=== PATIENT | female | born 1980 | race African-American/Black ===

== ENCOUNTER 2019-05-08 16:49 | Inpatient (IN) | payer OTHER ==
[~2019-05-08] VITALS: Ht 167.6 cm; Wt 81.0 kg
[2019-05-08 17:14] LABS: BASOPHILS % (AUTO) 0.6 % (0.0-2.0); EOSINOPHILS % (AUTO) 0.7 % (1.0-6.0); HEMATOCRIT 42.5 % (36-46); HEMOGLOBIN 14.5 g/dL (12.0-16.0); LYMPHOCYTES # (AUTO) 1.4 K/uL (1.0-4.8); LYMPHOCYTES % (AUTO) 13.6 % (22.0-44.0); MEAN CORPUSCULAR HEMOGLOBIN 31.6 pg (26.0-34.0); MEAN CORPUSCULAR VOLUME 93 fL (80-100); MONOCYTES # (AUTO) 0.6 K/uL (0.1-1.0); NEUTROPHILS # (AUTO) 8.2 K/uL (1.8-7.7); NEUTROPHILS % (AUTO) 79.1 % (40.0-70.0); PLATELET COUNT (AUTO) 330 K/uL (150-450); RED BLOOD CELL COUNT(AUTO) 4.57 MIL/uL (4.00-5.20); RED CELL DISTRIBUTION WIDTH 12.9 % (11.5-14.5)
[2019-05-08 17:30] LABS: ANION GAP 10 mmol/L (8-16); CALCIUM, TOTAL 8.8 mg/dL (8.8-10.5); CARBON DIOXIDE 27 mmol/L (22-29); CHLORIDE 104 mmol/L (98-107); CREATININE 0.99 mg/dL (0.60-1.30); GLOMERULAR FILTR. RATE CALC > 60 mL/min (>60); GLUCOSE,RANDOM 100 mg/dL (70-110); POTASSIUM 3.4 mmol/L (3.5-5.1); SODIUM SERUM 141 mmol/L (136-145); UREA NITROGEN, BLOOD 14 mg/dL (7-18)
[2019-05-08 17:42] LABS: ALANINE AMINOTRANSFERASE 20 U/L (12-78); ALBUMIN 3.7 g/dL (3.4-5.0); ALKALINE PHOSPHATASE 66 U/L (46-116); ASPARTATE AMINOTRANSFERASE 17 U/L (15-37); BILIRUBIN,TOTAL 0.4 mg/dL (0.1-1.0); HCG,QUANTITATIVE < 1 mIU/mL (0-6); TOTAL PROTEIN, SERUM 7.6 g/dL (6.4-8.2)
[2019-05-08 17:43] VITALS: BP 105/56
[2019-05-08 19:43] VITALS: BP 129/66
[2019-05-08] MEDS ORDERED: POTASSIUM CHL 10 MEQ/WATER 50 ML IV PRN (21:45)
[2019-05-08] MEDS: POTASSIUM CHLORIDE 20 MEQ ER TABLET PO PRN ×2 (21:55→22:09)
[2019-05-08] MEDS ORDERED: MAGNESIUM HYDROXIDE SUSPENSION 30 ML UDCUP PO PRN (22:00)
[2019-05-08] MEDS ORDERED: ACETAMINOPHEN 325 MG TABLET PO PRN (22:00)
[2019-05-08] MEDS ORDERED: ONDANSETRON HCL 4 MG/2 ML VIAL IVP PRN (22:00)
[2019-05-08] MEDS ORDERED: SODIUM CHLORIDE 0.9% 1,000 ML IV ONE (22:00)
[2019-05-08] MEDS: LORazepam 2 MG/ML VIAL IVP PRN (22:17)
[2019-05-08 23:35] VITALS: BP 136/69
[2019-05-09 04:46] VITALS: BP 122/89
[2019-05-09] MEDS: LORazepam 2 MG/ML VIAL IVP PRN ×4 (06:40→21:36)
[2019-05-09 07:46] VITALS: BP 138/63
[2019-05-09] MEDS: FAMOTIDINE 20 MG TABLET PO SCH (08:27)
[2019-05-09 11:13] VITALS: BP 119/72
[2019-05-09 15:20] VITALS: BP 106/67
[2019-05-09 20:54] VITALS: BP 117/78
[2019-05-09] MEDS ORDERED: ZOLPIDEM TARTRATE 10 MG TABLET PO PRN (21:45)
[2019-05-10] VITALS (7 sets, daily range): BP systolic 95–122; BP diastolic 54–74
[2019-05-10] MEDS: FAMOTIDINE 20 MG TABLET PO SCH (08:11)
[2019-05-10] MEDS: LORazepam 2 MG/ML VIAL IVP PRN (08:38)
[2019-05-10] MEDS: LORazepam 1 MG TABLET PO PRN ×4 (08:50→23:54)
[2019-05-11 05:17] LABS: HIV 1-2 SCREEN 4TH GEN W/RFLX Non Reactive (Non Reactive)
[2019-05-11 05:59] VITALS: BP 121/61
[2019-05-11 08:05] VITALS: BP 115/75
[2019-05-11] MEDS: FAMOTIDINE 20 MG TABLET PO SCH (09:00)
[2019-05-11 11:51] VITALS: BP 112/59
== END 2019-05-11 14:30 | DRG 897 ==
LOC: EMS 16:51 → 6S 17:20
PROVIDERS: ADMIT Internal Medicine; ATTEND Internal Medicine
DX: F11.23 Opioid dependence with withdrawal (principal); F41.9 Anxiety disorder, unspecified
CPT/HCPCS: 84132; 87340; 87389; G0480; J2060